=== PATIENT | male | born 1990 | race Two or more races ===

== ENCOUNTER 2020-05-12 15:07 | Emergency (ER) | payer OTHER ==
[~2020-05-12] VITALS: Ht 177.8 cm; Wt 96.0 kg
[2020-05-12] MEDS ORDERED: LOSA25TA21 PO (15:28)
[2020-05-12 16:02] LABS: COVID AG,FIA SOURCE NASOPHARYNGEAL
[2020-05-12 16:45] VITALS: BP 119/74
== END 2020-05-12 17:14 | disposition home or self-care (01) ==
LOC: EMS 15:07
DX: I10 Essential (primary) hypertension (principal); Z20.822 Contact with and (suspected) exposure to COVID-19
CPT/HCPCS: 87426; 99283